=== PATIENT | female | born 1955 | race Hispanic/Latino ===

== ENCOUNTER 2017-06-21 18:22 | Inpatient (IN) | payer OTHER ==
[~2017-06-21] VITALS: Ht 152.4 cm; Wt 65.5 kg
[2017-06-21 18:59] LABS: BASOPHILS % 0.5 % (0.0-1.0); EOSINOPHILS % 0.5 % (0.0-6.0); HEMATOCRIT 40.5 % (34.2-44.1); HEMOGLOBIN 14.6 g/dL (12.0-16.0); LYMPHOCYTES # (AUTO) 1.2 (1.0-3.2); LYMPHOCYTES % 21.1 % (18.0-39.1); MEAN CORPUSCULAR VOLUME 91.4 fL (81-99); MONOCYTES # (AUTO) 0.6 (0.2-0.8); MONOCYTES % 9.6 % (4.4-11.3); PLATELET COUNT 159 x10e3/uL (140-360); RED BLOOD COUNT 4.43 x10e6/uL (3.6-5.1); RED CELL DISTRIBUTION WIDTH 12.8 % (11.7-14.4)
[2017-06-21 19:13] LABS: ALANINE AMINOTRANSFERASE 33 IU/L (0-55); ALBUMIN 4.1 g/dL (3.5-5.0); ALBUMIN/GLOBULIN RATIO 1.2 (0.8-2.0); ALKALINE PHOSPHATASE 146 IU/L (40-150); ANION GAP 25.8 mmol/L (8-16); BLOOD UREA NITROGEN 7 mg/dL (7-26); BUN/CREATININE RATIO 8 (6-25); CALCIUM 9.5 mg/dL (8.4-10.2); CARBON DIOXIDE 14 mmol/L (22-29); CHLORIDE 99 mmol/L (98-107); CREATINE KINASE 30 IU/L (29-168); CREATININE, SERUM 0.92 mg/dL (0.57-1.11); EST GLOMERULAR FILTRATION RATE > 60 ML/MIN (60-); GLUCOSE 333 mg/dL (74-118); SODIUM 136 mmol/L (136-145)
[2017-06-21 19:16] LABS: POTASSIUM 2.8 mmol/L (3.5-5.1)
[2017-06-21] MEDS ORDERED: SODIUM CHLORIDE 0.9% 1000ML 1,000 ML IV STA (19:42)
[2017-06-21] MEDS ORDERED: PANTOPRAZOLE 40 MG 10ML VIAL IV STA (19:42)
[2017-06-21] MEDS ORDERED: ONDANSETRON HCL INJ 2 MG/ML VIAL IV STA (19:42)
[2017-06-21 19:57] LABS: CLARITY,URINE CLEAR (CLEAR); COLOR,URINE YELLOW (YELLOW); LEUKOCYTE ESTERASE ,URINE NEGATIVE (NEGATIVE); NITRITE,URINE NEGATIVE (NEGATIVE)
[2017-06-21 19:58] LABS: BILIRUBIN,URINE NEGATIVE (NEGATIVE); KETONES,URINE 3+ (NEGATIVE); PROTEIN,URINE DIPSTICK 1+ (NEGATIVE); URINE UROBILINOGEN 0.2 mg/dL (0.2 - 1)
[2017-06-21] MEDS ORDERED: POTASSIUM CHLORIDE 20MEQ/15ML UDC NG STA (20:08)
[2017-06-21 20:09] LABS: BACTERIA,URINE FEW /HPF; EPITHELIAL CELLS,URINE FEW /LPF; MUCUS,URINE FEW (RARE); RBC,URINE 0-5 /HPF (0-5)
[2017-06-21 20:28] LABS: ABG HCO3 14 mmol/L (23-28); ABG PCO2 27 mmHg (41-51); ABG PH 7.33 (7.31-7.41); ABG PO2 98 mmHg (80-105)
--- NOTE | 2017-06-21 20:29 | Diagnostic Imaging Report ---
Frontal and lateral views of the chest. HISTORY: HYPERGLYCEMIA, MALAISE COMPARISON: None available. DISCUSSION: Lungs: Left retrocardiac volume loss and linear oriented opacities. No pulmonary alveolar edema. Pleura: No pleural effusion or pneumothorax. Heart and mediastinum: The cardiomediastinal silhouette appears unremarkable. Bones: No acute osseous lesion. IMPRESSION: Left basilar atelectasis versus scarring. In the appropriate setting, superimposed pneumonia or aspiration may be a consideration. Signed by: Dr. Grayson Cho D.O., M.M.M. on 06/21/2017 8:26 PM
[2017-06-21] MEDS ORDERED: INSULIN REGULAR, HUMAN 100 UNIT/1 ML 3ML VIAL IV STA (20:52)
[2017-06-21 20:59] LABS: SALICYLATE < 5.0 mg/dL (0-30)
[2017-06-21] MEDS: KCL 20MEQ/.9 SOD CHL 1,000 ML IV SCH ×2 (21:00→23:55)
[2017-06-21 21:09] LABS: AMPHETAMINES SCREEN,URINE NEGATIVE (NEGATIVE); BENZODIAZEPINES SCREEN,URINE NEGATIVE (NEGATIVE); PHENCYCLIDINE SCREEN,URINE NEGATIVE (NEGATIVE)
[2017-06-21] MEDS ORDERED: CEFTRIAXONE SOD 1 GM VIAL IV SCH (21:15)
[2017-06-21] MEDS ORDERED: DEXTROSE 50% SYRINGE 50 ML IV PRN (21:30)
[2017-06-21] MEDS ORDERED: ONDANSETRON HCL INJ 2 MG/ML VIAL IV PRN (21:30)
--- OUTSIDE RECORDS SUMMARY | 2017-06-21 22:14 | XMS REPORT ---
Author Author [facility] Address Unknown Phone Unavailable Care Team Providers Care Cassandra Developer Name Role Phone MARKO LAWTON Unavailable Unavailable Problems This patient has no known problems. Allergies, Adverse Reactions, Alerts This patient has no known allergies or adverse reactions. Medications This patient has no known medications. Results Test Description Test Time Test Comments Text Results Atomic Results Result Comments CHEST 2 VIEWS [place] [address] Patient Name: ANTONIETA CHEUNG MR #: [id number] : 1955 Age/Sex: 62/F Req # : [id number] Adm Physician: Ordered by: MARKO LAWTON MD Report #: [id number] Location: ER Room/Bed: Procedure: [id number] DX/CHEST 2 VIEWS Exam Date: 06/21/17 Exam Time: 2004 REPORT STATUS: Signed Frontal and lateral views of the chest. HISTORY: HYPERGLYCEMIA, MALAISE COMPARISON: None available. DISCUSSION: Lungs: Left retrocardiac volume loss and linear oriented opacities. No pulmonary alveolar edema. Pleura: No pleural effusion or pneumothorax. Heart and mediastinum: The cardiomediastinal silhouette appears unremarkable. Bones: No acute osseous lesion. IMPRESSION: Left basilar atelectasis versus scarring. In the appropriate setting, superimposed pneumonia or aspiration may be a consideration. Signed by: Dr. Hina Cho D.O., M.M.M. on 2017 8:26 PM Dictated By: HINA CHO DO 25 Transcribed By: OLGA on 06/21/172025 COPY TO: MARKO LAWTON MD
[2017-06-21] MEDS: LEVOFLOXACIN 500MG/D5W 100ML 100 ML IV SCH (22:18)
[2017-06-21 22:32] VITALS: BP 134/64
[2017-06-21 23:30] VITALS: BP 134/64
[2017-06-21 23:34] VITALS: BP 134/64
[2017-06-22] VITALS (7 sets, daily range): BP systolic 104–146; BP diastolic 54–69
[2017-06-22] MEDS ORDERED: KCL 20MEQ/.9 SOD CHL 1,000 ML IV ONE (00:30)
[2017-06-22 03:13] LABS: CREATINE KINASE MB 1.5 ng/mL (0-5.0)
[2017-06-22 07:01] LABS: BASOPHILS % 0.7 % (0.0-1.0); HEMATOCRIT 33.6 % (34.2-44.1); HEMOGLOBIN 11.7 g/dL (12.0-16.0); LYMPHOCYTES # (AUTO) 1.4 (1.0-3.2); LYMPHOCYTES % 32.9 % (18.0-39.1); MEAN CORPUSCULAR HEMOGLOBIN 32.4 pg (28-32); MEAN CORPUSCULAR HGB CONC 34.8 g/dL (31-35); MEAN CORPUSCULAR VOLUME 93.1 fL (81-99); MONOCYTES # (AUTO) 0.6 (0.2-0.8); MONOCYTES % 13.8 % (4.4-11.3); NEUTROPHILS # (AUTO) 2.1 (2.1-6.9); NEUTROPHILS % 51.1 % (38.7-80.0); PLATELET COUNT 124 x10e3/uL (140-360); RED BLOOD COUNT 3.61 x10e6/uL (3.6-5.1); RED CELL DISTRIBUTION WIDTH 12.8 % (11.7-14.4)
[2017-06-22 07:22] LABS: ALANINE AMINOTRANSFERASE 21 IU/L (0-55); ALBUMIN 2.9 g/dL (3.5-5.0); ALBUMIN/GLOBULIN RATIO 1.2 (0.8-2.0); ALKALINE PHOSPHATASE 93 IU/L (40-150); ANION GAP 18.4 mmol/L (8-16); BLOOD UREA NITROGEN < 5 mg/dL (7-26); CALCIUM 8.2 mg/dL (8.4-10.2); CARBON DIOXIDE 13 mmol/L (22-29); CHLORIDE 111 mmol/L (98-107); CREATININE, SERUM 0.71 mg/dL (0.57-1.11); EST GLOMERULAR FILTRATION RATE > 60 ML/MIN (60-); GLUCOSE 256 mg/dL (74-118); MAGNESIUM 1.4 MG/DL (1.3-2.1); POTASSIUM 3.4 mmol/L (3.5-5.1); SODIUM 139 mmol/L (136-145)
[2017-06-22 07:30] LABS: BUN/CREATININE RATIO 7 (6-25)
[2017-06-22] MEDS: PANTOPRAZOLE 40 MG 10ML VIAL IV SCH ×2 (08:34→17:02)
[2017-06-22] MEDS: LEVOFLOXACIN 500MG/D5W 100ML 100 ML IV SCH (08:34)
[2017-06-22] MEDS: INSULIN REGULAR, HUMAN 100 UNIT/1 ML 3ML VIAL SQ SCH ×4 (08:34→20:25)
--- NOTE | 2017-06-22 12:06 | History and Physical ---
This patient comes in with high blood sugars. Was feeling down and feeling fatigued, increased thirst, increased polyuria and very fatigued. Came in and was found to have high blood sugars, and was admitted for dehydration, hypokalemia, hyperglycemia, and a urinary tract infection. PAST MEDICAL HISTORY: No medical history. FAMILY HISTORY: Positive for diabetes mellitus. SOCIAL HISTORY: Lives with . No ETOH. No IV drug abuse. MEDICATIONS: None. ALLERGIES: NO DRUG ALLERGIES. SURGICAL HISTORY: History of ovarian cancer removal when she was 18. Otherwise, left shoulder surgery. REVIEW OF SYSTEMS: Negative for chest pain. No shortness of breath. Positive for nausea and some vomiting. No diarrhea. No constipation. No rectal bleeding. No hematochezia. No hematemesis. Positive for polyuria, polydipsia and polyphagia. The patient also has a history of quite a bit of weight loss in the last couple of months. No diplopia. No blurry vision. Positive for headache. PHYSICAL EXAMINATION GENERAL: The patient is alert and oriented times 3. VITAL SIGNS: Temperature is 97.8, blood pressure 104/54, pulse ox 99%. HEENT: Normocephalic and atraumatic. Pupils reactive to light and accommodation. CV: S1 and S2 normal. Regular rate and rhythm. ABDOMEN: Nontender and nondistended. EXTREMITIES: No clubbing. No cyanosis. No edema. LABORATORY VALUES: Initial white count was 5.84, hemoglobin 14.6, hematocrit 40.5. No left shift present. Chemistry: Initially, sodium was 136, potassium 2.8, anion gap was 25.8, creatinine 0.9, glucose 333, total bili was 1.9, BUN 7, creatinine 0.9, CO2 14. She had blood gas done with pH of 7.3, pCO2 27, bicarb 14, pO2 98, O2 saturation 97%. Toxicology was negative for everything. Urine was positive for 11-20 white count and nitrite negative. Leukocyte esterase negative too. Culture is pending, blood culture and urine culture. ASSESSMENT 1. Hyperglycemia. 2. Dehydration. 3. Hypokalemia. 4. New-onset diabetes mellitus. PLAN: Continue on sliding scale. Fluids have been started. Will start the patient on some clear liquid diet, and also check her hemoglobin A1c, lipids. Start on statin and THALIA inhibitors. Also, started on Levemir 20 units at nighttime. Further recommendations per clinical course. Will continue to monitor the patient. Job#: [id number] [facility]IR[facility]
[2017-06-22 13:24] LABS: CREATINE KINASE 40 IU/L (29-168)
[2017-06-22] MEDS ORDERED: INSULIN DETEMIR 100 UNIT/ML PEN SQ SCH (21:00)
[2017-06-22] MEDS ORDERED: BISACODYL 5 MG TAB EC PO PRN (22:45)
[2017-06-23] VITALS: BP 123/66
[2017-06-23 04:00] VITALS: BP 136/72
[2017-06-23 07:27] LABS: BASOPHILS % 0.4 % (0.0-1.0); EOSINOPHILS % 0.7 % (0.0-6.0); HEMATOCRIT 34.6 % (34.2-44.1); HEMOGLOBIN 12.8 g/dL (12.0-16.0); LYMPHOCYTES # (AUTO) 0.9 (1.0-3.2); LYMPHOCYTES % 20.8 % (18.0-39.1); MEAN CORPUSCULAR HEMOGLOBIN 33.2 pg (28-32); MEAN CORPUSCULAR VOLUME 89.9 fL (81-99); MONOCYTES # (AUTO) 0.6 (0.2-0.8); MONOCYTES % 13.2 % (4.4-11.3); NEUTROPHILS # (AUTO) 2.9 (2.1-6.9); NEUTROPHILS % 64.7 % (38.7-80.0); PLATELET COUNT 107 x10e3/uL (140-360); RED BLOOD COUNT 3.85 x10e6/uL (3.6-5.1); RED CELL DISTRIBUTION WIDTH 12.7 % (11.7-14.4)
[2017-06-23 07:48] LABS: ANION GAP 16.4 mmol/L (8-16); BLOOD UREA NITROGEN 6 mg/dL (7-26); BUN/CREATININE RATIO 8 (6-25); CALCIUM 9.3 mg/dL (8.4-10.2); CARBON DIOXIDE 21 mmol/L (22-29); CHLORIDE 103 mmol/L (98-107); CREATININE, SERUM 0.71 mg/dL (0.57-1.11); EST GLOMERULAR FILTRATION RATE > 60 ML/MIN (60-); GLUCOSE 231 mg/dL (74-118); SODIUM 138 mmol/L (136-145)
[2017-06-23 07:55] LABS: POTASSIUM 2.4 mmol/L (3.5-5.1)
[2017-06-23 08:00] LABS: THYROID STIMULATING HORMONE 4.514 uIU/mL (0.350-4.940)
[2017-06-23 08:09] VITALS: BP 118/64
[2017-06-23] MEDS ORDERED: POTASSIUM CHLORIDE 20 MEQ TAB CR PO STA (08:13)
[2017-06-23] MEDS ORDERED: LEVEMIR100 UNIT/1 SC (08:46)
[2017-06-23] MEDS ORDERED: METFORMIN HCL500 M2 PO (08:46)
[2017-06-23] MEDS ORDERED: GLIMEPIRIDE2 MG PO (08:47)
[2017-06-23] MEDS ORDERED: LISINOPRIL10 MG PO (08:47)
[2017-06-23] MEDS ORDERED: LEVAQUIN500 MG PO (08:47)
[2017-06-23] MEDS ORDERED: POTASSIUM CHLORIDE 20 MEQ TAB CR PO ONE (09:00)
[2017-06-23] MEDS: LEVOFLOXACIN 500MG/D5W 100ML 100 ML IV SCH (09:00)
[2017-06-23] MEDS: PANTOPRAZOLE 40 MG 10ML VIAL IV SCH (09:00)
[2017-06-23] MEDS: INSULIN REGULAR, HUMAN 100 UNIT/1 ML 3ML VIAL SQ SCH (09:08)
== END 2017-06-23 09:45 | disposition home or self-care (01) | DRG 638 ==
LOC: ER 18:22 → MED/SURG2 22:12
PROVIDERS: ADMIT Family Medicine; ATTEND Family Medicine
DX: E11.65 Type 2 diabetes mellitus with hyperglycemia (principal); N39.0 Urinary tract infection, site not specified; E86.0 Dehydration; E87.6 Hypokalemia; B96.20 Unspecified Escherichia coli [E. coli] as the cause of diseases classified elsewhere
CPT/HCPCS: 36415; 36600; 71046; 80048; 80053; 80061; 80307; 80320; 80329; 81001; 82550; 82553; 82805; 82948; 83036; 83605; 83735; 84436; 84443; 84479; 84484; 85025; 87040; 87086; 99284; J1956; J2405

== ENCOUNTER 2021-01-07 21:23 | Emergency (ER) | payer OTHER ==
[~2021-01-07] VITALS: Ht 152.4 cm; Wt 65.3 kg
[~2021-01-07 21:23] MED LIST: GLIMEPIRIDE2 MG PO; LEVAQUIN500 MG PO; LEVEMIR100 UNIT/1 SC; LISINOPRIL10 MG PO; METFORMIN HCL500 M2 PO
[2021-01-07] MEDS ORDERED: TRAMADOL HCL 50 MG TAB PO STA (21:32)
== END 2021-01-08 00:45 | disposition home or self-care (01) ==
LOC: ER 21:32
DX: S06.0X0A Concussion without loss of consciousness, initial encounter (principal); S02.2XXA Fracture of nasal bones, initial encounter for closed fracture; S13.4XXA Sprain of ligaments of cervical spine, initial encounter; W10.8XXA Fall (on) (from) other stairs and steps, initial encounter; Y93.01 Activity, walking, marching and hiking; Y92.89 Other specified places as the place of occurrence of the external cause; K21.9 Gastro-esophageal reflux disease without esophagitis
CPT/HCPCS: 70450; 70486; 71046; 72125; 99283